=== PATIENT | female | born 1990 | race Caucasian/White ===

== ENCOUNTER 2018-08-10 18:14 | Emergency (ER) | payer OTHER ==
--- NOTE | 2018-08-10 20:47 | UC ---
HPI Febrile Illness - HPI Summary HPI Summary: Patient is a 27-year-old female that has been febrile 3 days. She has had a headache and severe muscle and joint pains. She has had shaking chills. She denies any stiff neck or photophobia. She has no nausea vomiting or diarrhea. She has no cough or runny nose. She denies any UTI symptoms. Yesterday she she felt improvement with ibuprofen. He felt so good she went to [facility] to attend a concert. When she got back to her room after the concert she noticed a faint rash to her shins that she thought was due to razor burn. When she got up this morning the rash should worsen. She also feels swollen around the ankles. He denies any swelling of any of her other joints. She denies any recent travel other than to [facility]. Denies any tick bites. She has had mono. She has never been hospitalized. She denies any recent surgical procedures or instrumentation. - History of Current Complaint Chief Complaint: UCGeneralIllness Time Seen by Provider: 08/10/18 20:03 Hx Obtained From: Patient Hx Last Menstrual Period: 08/10/18 Onset/Duration: Started Days Ago Timing: Constant Temperature: 100.2 F - tactile at home Initial Severity: Mild Current Severity: Severe Pain Intensity: 8 Pain Scale Used: 0-10 Numeric Aggravating Factors: Other: - ambulating causes pain Associated Signs and Symptoms: Arthralgia, Chills, Headache, Joint Pain, Leg Swelling, Myalgia, Night Sweats, Rash - Allergy/Home Medications Allergies/Adverse Reactions: Allergies Allergy/AdvReac Type Severity Reaction Status Date / Time amoxicillin Allergy Rash Verified 08/10/18 18:47 Penicillins Allergy Rash Verified 08/10/18 18:47 Home Medications: Home Medications Control 08/10/18 [History] Ibuprofen TAB* [Motrin TAB* 600 MG] 600 mg PO Q6HR PRN 08/10/18 [History Confirmed 08/10/18] Spironolactone TAB* [Aldactone TAB 25 MG*] 25 mg PO DAILY 08/10/18 [History Confirmed 08/10/18] PMH/Surg Hx/FS Hx/Imm Hx Previously Healthy: Yes - mono - Surgical History Surgical History: Yes Surgery Procedure, Year, and Place: wisdom teeth - Family History Known Family History: Positive: Cardiac Disease, Hypertension - Social History Alcohol Use: Weekly Alcohol Amount: two drinks Substance Use Type: None Smoking Status (MU): Never Smoked Tobacco Review of Systems Constitutional: Fever, Chills, Fatigue Skin: Rash Eyes: Negative ENT: Negative Respiratory: Cough Cardiovascular: Negative Gastrointestinal: Negative Genitourinary: Negative Motor: Negative Neurovascular: Negative Musculoskeletal: Arthralgia, Myalgia Neurological: Headache Psychological: Negative Is Patient Immunocompromised?: No All Other Systems Reviewed And Are Negative: Yes Physical Exam Triage Information Reviewed: Yes Appearance: Well-Appearing, No Pain Distress, Well-Nourished Vital Signs: Initial Vital Signs Temp 100.2 F 08/10/18 18:39 Pulse 115 08/10/18 18:39 Resp 16 08/10/18 18:39 BP 113/78 08/10/18 18:39 Pulse Ox 100 08/10/18 18:39 Vital Signs Reviewed: Yes Eyes: Positive: Conjunctiva Clear ENT: Positive: Normal ENT inspection, Hearing grossly normal, Pharynx normal, TMs normal, Uvula midline. Negative: Pharyngeal erythema, Nasal congestion, Nasal drainage, TM bulging, TM dull, TM red, Tonsillar swelling, Tonsillar exudate, Trismus, Muffled voice, Hoarse voice, Dental tenderness, Sinus tenderness Neck: Positive: Supple, Nontender, No Lymphadenopathy Respiratory: Positive: Lungs clear, Normal breath sounds, No respiratory distress, No accessory muscle use Cardiovascular: Positive: RRR, No Murmur Abdomen Description: Positive: Nontender, No Organomegaly. Negative: CVA Tenderness (R), CVA Tenderness (L), Distended, Guarding Musculoskeletal: Positive: ROM Intact, No Edema Neurological: Positive: Alert, Muscle Tone Normal Psychological: Positive: Normal Response To Family Skin: Positive: Other - faint 1cm lesions below knees/darker macules ankles and dorsum of feet, some trace edema. Diagnostics - Laboratory Diagnostic Studies Completed/Ordered: UA ++ protein, +blood Course/Dx - Course Course Of Treatment: The patient does not appear toxic. I gave her the option of going to the ER for stat lab work. He declined. She has no nuchal rigidity. Her lungs are clear. I do not appreciate a heart murmur. Her abdomen is nontender. I informed her I was unsure of the cause of her symptoms and that I felt we should do blood work. I suggested starting her on doxycycline in case this is related to a tick borne illness like Lyme disease. - Diagnoses Clinic Provider Diagnoses: febrile illness. ? viral vs lyme disease vs other Discharge - Sign-Out/Discharge Documenting (check all that apply): Patient Departure All imaging exams completed and their final reports reviewed: No Studies - Discharge Plan Condition: Stable Disposition: HOME Patient Education Materials: Fever in Adults (ED) Referrals: [facility] [place] [facility] [place]Outside] - As Soon As Possible Additional Instructions: blood work is pending I suggest starting doxy take with food TO ER FOR NEW OR WORSENING SYMPTOMS - Billing Disposition and Condition Condition: STABLE Disposition: Home
[2018-08-10] MEDS ORDERED: DOXYcycline CAP(*) 100 MG PO ONE (20:58)
[2018-08-10] MEDS ORDERED: Acetaminophen TAB* 325 MG PO ONE (21:04)
[2018-08-10 21:14] VITALS: BP 116/76
[2018-08-11 10:59] LABS: Hematocrit 43 % (35-47); Hemoglobin 14.6 g/dl (12.0-16.0); Mean Corpuscular HGB Conc 34 g/dl (31-36); Mean Corpuscular Hemoglobin 28 pg (27-31); Mean Corpuscular Volume 82 fL (80-97); Mean Platelet Volume 8.9 um3 (7.4-10.4); Platelet Count 215 10^3/ul (150-450); Red Blood Count 5.28 10^6/ul (4.00-5.40); Red Cell Distribution Width 14 % (10.5-15); White Blood Count 6.8 10^3/ul (3.5-10.8)
[2018-08-11 11:00] LABS: ABS Basophils 0 10^3/ul (0-0.2); ABS Eosinophils 0.2 10^3/ul (0-0.6); ABS Lymphocytes 1.1 10^3/ul (1.0-4.8); ABS Monocytes 0.5 10^3/ul (0-0.8); ABS Neutrophils 4.9 10^3/ul (1.5-7.7)
[2018-08-11 11:10] LABS: EGFR Non-African American 84.8 (>60)
[2018-08-11 11:24] LABS: ABS Basophils 0 10^3/ul (0-0.2); ABS Neutrophils 4.6 10^3/ul (1.5-7.7); Monocytes % 4 % (0-7)
--- NOTE | 2018-08-12 07:43 | UC ---
- Progress Note Progress Note: please call patient to assess clinical improvement. She was started on doxy on 08-10-18, chief complaint of rash, fever and malaise. CBC shows reactive monocytosis and ESR is very slightly elevated at 15. Discharge - Sign-Out/Discharge Documenting (check all that apply): Post-Discharge Follow Up All imaging exams completed and their final reports reviewed: No Studies - Discharge Plan Condition: Stable Disposition: HOME Prescriptions: DOXYcycline CAP(*) [DOXYcycline 100MG CAP(*)] 100 mg PO BID #28 cap Patient Education Materials: Fever in Adults (ED) Forms: *School Release Referrals: [facility] [place] [facility] [Outside] - As Soon As Possible Additional Instructions: blood work is pending I suggest starting doxy take with food TO ER FOR NEW OR WORSENING SYMPTOMS - Billing Disposition and Condition Condition: STABLE Disposition: Home
== END 2018-08-10 21:20 | disposition home or self-care (01) ==
LOC: UCEAST 18:14
DX: R50.9 Fever, unspecified (principal); M79.1 Myalgia; R51 Headache; R21 Rash and other nonspecific skin eruption; R61 Generalized hyperhidrosis; Z88.0 Allergy status to penicillin
CPT/HCPCS: 36415; 80053; 81003; 85025; 85060; 85652; 86308; 86618; 99202; A9270-GY; G0463

== ENCOUNTER 2018-08-13 16:00 | Emergency (ER) | payer OTHER ==
[2018-08-13] MEDS ORDERED: NS 0.9% 1000 ML* 1,000 ML IV ONE (18:02)
[2018-08-13] MEDS ORDERED: Ketorolac INJ* 30 MG/ML 1 ML VIAL IV PUSH ONE (18:02)
[2018-08-13 18:31] LABS: ABS Basophils 0.1 10^3/ul (0-0.2); ABS Eosinophils 0.5 10^3/ul (0-0.6); ABS Lymphocytes 1.7 10^3/ul (1.0-4.8); ABS Monocytes 0.6 10^3/ul (0-0.8); ABS Neutrophils 3.2 10^3/ul (1.5-7.7); ABS Nucleated RBC 0 10^3/ul; Eosinophil % 7.7 % (0-6); Hematocrit 39 % (35-47); Hemoglobin 13.1 g/dl (12.0-16.0); Lymphocyte % 28.6 % (25-47); Mean Corpuscular HGB Conc 33 g/dl (31-36); Mean Corpuscular Hemoglobin 27 pg (27-31); Mean Corpuscular Volume 81 fL (80-97); Nucleated Red Blood Cells % 0.1; Platelet Count 236 10^3/ul (150-450); Red Blood Count 4.82 10^6/ul (4.00-5.40); Red Cell Distribution Width 13 % (10.5-15); White Blood Count 6.1 10^3/ul (3.5-10.8)
[2018-08-13 18:48] LABS: EGFR Non-African American 98.7 (>60)
--- NOTE | 2018-08-13 19:23 | ED ---
HPI Febrile Illness - HPI Summary HPI Summary: The pt is a 27 y.o female presenting to the [facility] with a chief complaint of a fever. The pt states the onset of the symptoms was Tuesday (08/08/18). The pt reports no weight gain, CASTANEDA, swelling at the LE (below the knee). She also states "red dots" at the thighs of both her lower extremities which she states were an "off red color." She also denies ear ache, sore throat, neck pain, chest pain, abd pain, anxiety, depression, , acute back pain, blurry vision, and double vision. The fever has increased according to the pt recently. The eek test came back negative according to the pt. Doxy was being used to treat her previously and she also stated that she was seen at the [facility] on (08/10/18). The patient rates the pain 4/10 in severity. Symptoms aggravated by nothing. Symptoms alleviated by nothing. - History of Current Complaint Chief Complaint: EDGeneral Hx Obtained From: Patient Hx Last Menstrual Period: 08/10/18 Onset/Duration: Started Days Ago - 08/08/18, Still Present Timing: Constant Initial Severity: Mild Current Severity: Mild Pain Intensity: 4 Pain Scale Used: 0-10 Numeric Aggravating Factors: Nothing Alleviating Factors: Nothing Associated Signs and Symptoms: Night Sweats - Allergy/Home Medications Allergies/Adverse Reactions: Allergies Allergy/AdvReac Type Severity Reaction Status Date / Time amoxicillin Allergy Rash Verified 08/13/18 16:11 Penicillins Allergy Rash Verified 08/13/18 16:11 PMH/Surg Hx/FS Hx/Imm Hx Sensory History: Denies: Hx Deafness Opthamlomology History: Denies: Hx Legally Blind EENT History: Denies: Hx Deafness - Surgical History Surgery Procedure, Year, and Place: wisdom teeth Infectious Disease History: No Infectious Disease History: Denies: Traveled Outside the [place] in Last 30 Days - Family History Known Family History: Positive: Cardiac Disease, Hypertension - Social History Occupation: Employed Full-time Alcohol Use: Weekly Alcohol Amount: two drinks Substance Use Type: Reports: None Smoking Status (MU): Never Smoked Tobacco Review of Systems Positive: Fever, Other - Night sweats Eyes: Other - Negative double vision Negative: Blurred Vision Negative: Sore Throat, Ear Ache Negative: Chest Pain Negative: Shortness Of Breath Gastrointestinal: Other - No weight gain Negative: Abdominal Pain Positive: no symptoms reported. Negative: burning, hematuria Musculoskeletal: Other - Negative neck pain and Negative acute back pain Positive: Rash - "red dots" on both thighs Positive: Headache Negative: Anxious, Depressed All Other Systems Reviewed And Are Negative: No Physical Exam Triage Information Reviewed: Yes Vital Signs On Initial Exam: Initial Vitals Temp Pulse Resp BP Pulse Ox 97.8 F 91 16 122/81 99 08/13/18 16:03 08/13/18 16:03 08/13/18 16:03 08/13/18 16:03 08/13/18 16:03 Vital Signs Reviewed: Yes Diagnostics - Vital Signs Vital Signs Temp Pulse Resp BP Pulse Ox 08/13/18 17:09 112/74 08/13/18 16:39 113/70 08/13/18 16:03 97.8 F 91 16 122/81 99 - Laboratory Lab Results: Lab Results 08/13/18 08/13/18 Range/Units 18:20 18:20 WBC 6.1 (3.5-10.8) 10^3/ul RBC 4.82 (4.00-5.40) 10^6/ul Hgb 13.1 (12.0-16.0) g/dl Hct 39 (35-47) % MCV 81 (80-97) fL MCH 27 (27-31) pg MCHC 33 (31-36) g/dl RDW 13 (10.5-15) % Plt Count 236 (150-450) 10^3/ul MPV 8.0 (7.4-10.4) um3 Neut % (Auto) 53.3 (38-83) % Lymph % (Auto) 28.6 (25-47) % [place] % (Auto) 9.5 H (0-7) % Eos % (Auto) 7.7 H (0-6) % Baso % (Auto) 0.9 (0-2) % Absolute Neuts (auto) 3.2 (1.5-7.7) 10^3/ul Absolute Lymphs (auto) 1.7 (1.0-4.8) 10^3/ul Absolute Monos (auto) 0.6 (0-0.8) 10^3/ul Absolute Eos (auto) 0.5 (0-0.6) 10^3/ul Absolute Basos (auto) 0.1 (0-0.2) 10^3/ul Absolute Nucleated RBC 0 10^3/ul Nucleated RBC % 0.1 Sodium 137 (135-145) mmol/L Potassium 3.8 (3.5-5.0) mmol/L Chloride 104 (101-111) mmol/L Carbon Dioxide 27 (22-32) mmol/L Anion Gap 6 (2-11) mmol/L BUN 8 (6-24) mg/dL Creatinine 0.71 (0.51-0.95) mg/dL Est GFR ( Amer) 119.5 (>60) Est GFR (Non-Af Amer) 98.7 (>60) BUN/Creatinine Ratio 11.3 (8-20) Glucose 96 (70-100) mg/dL Calcium 8.6 (8.6-10.3) mg/dL Total Bilirubin 0.40 (0.2-1.0) mg/dL AST 19 (13-39) U/L ALT 10 (7-52) U/L Alkaline Phosphatase 64 (34-104) U/L Total Protein 6.2 L (6.4-8.9) g/dL Albumin 3.5 (3.2-5.2) g/dL Globulin 2.7 (2-4) g/dL Albumin/Globulin Ratio 1.3 (1-3) Result Diagrams: 08/13/18 18:20 08/13/18 18:20 Lab Statement: Any lab studies that have been ordered have been reviewed, and results considered in the medical decision making process. Course/Dx - Course Course Of Treatment: The pt is a 27 y.o female with a chief complaint of a fever. She states her fever had been increasing. Upon physical examination, no piting edema or swelling to the legs were noted and lab results were discussed with the patient. We recommended follow up with PCP upon discharge from the [facility]. The dx will be viral syndrome. - Diagnoses Provider Diagnoses: Viral syndrome Discharge - Sign-Out/Discharge Documenting (check all that apply): Patient Departure - Discharge home - Discharge Plan Condition: Stable Disposition: HOME Patient Education Materials: Viral Syndrome (ED) Referrals: [facility] [Provider Group] No Primary Care Phys,[facility] [Primary Care Provider] - Additional Instructions: Please follow up with your primary care physician. return if worse or any new symptoms. Take tylenol and motrin for pain. Please follow up with your doctor regarding your swelling to your legs. - Attestation Statements Document Initiated by Scribe: Yes Documenting Scribe: Rishi Covington Provider For Whom Scribe is Documenting (Include Credential): Dr. Cynthia Shaikh Scribe Attestation: IRishi, scribed for Dr. Cynthia Shiakh on 08/13/18 at 1938.
[2018-08-13 19:40] VITALS: BP 120/81
== END 2018-08-13 19:39 | disposition home or self-care (01) ==
LOC: ED 16:00
DX: B34.9 Viral infection, unspecified (principal); Z88.3 Allergy status to other anti-infective agents; Z88.0 Allergy status to penicillin
CPT/HCPCS: 36415; 80053; 85025; 96361; 96374; 99282; J1885